=== PATIENT | female | born 1975 | race African-American/Black ===

== ENCOUNTER 2017-06-07 12:57 | Emergency (ER) | payer OTHER ==
[2017-06-07 13:03] VITALS: BMI 42.5
--- NOTE | 2017-06-07 14:24 | PDOC ---
History of Present Illness - General Chief Complaint: Vaginal Bleeding Stated Complaint: ABD PAIN, VAGINAL BLEEDING (6 WKS ) Time Seen by Provider: 06/07/17 14:05 History Source: Patient Exam Limitations: No Limitations - History of Present Illness Initial Comments: CHIEF COMPLAINT: 42 y/o afebrile female, , approximately 6 week female c/o vaginal bleeding x 2 days. HISTORY OF PRESENT ILLNESS: The patient states she had a normal ultrasound and blood work at [facility] on 06/05/17. Yesterday, she began having vaginal bleeding so she went to [facility] ER where they did blood work and a transvaginal ultrasound. She does not remember what her beta number was. She states she has heavier bleeding with abdominal cramping today. She denies f/c, n/v/d, CP, SOB, back pain, hematuria, dysuria. Vital signs on arrival are within normal limits. REVIEW OF SYSTEMS: GENERAL/CONSTITUTIONAL: No fever/chills. No weakness. No weight change. HEAD, EYES, EARS, NOSE AND THROAT: No change in vision. No ear pain or discharge. No sore throat. CARDIOVASCULAR: No chest pain or shortness of breath. RESPIRATORY: No cough, wheezing, or hemoptysis. GASTROINTESTINAL: +abdominal cramping and vaginal bleeding. No nausea, vomiting , diarrhea. GENITOURINARY: No dysuria, frequency, or change in urination. MUSCULOSKELETAL: No joint or muscle swelling or pain. No neck or back pain. NEURO: PHYSICAL EXAM: GENERAL: The patient is awake, alert, and fully oriented, in no acute distress. She is morbidly obese, ambulatory and well appearing. HEAD: Normal with no signs of trauma. ENT: Pupils equal, round and reactive to light, extraocular movements intact, sclera anicteric, conjunctiva clear. Neck supple. LUNGS: Clear to auscultation bilaterally. Normal excursion. No respiratory distress or use of accessory muscles. CV: RRR, S1/S2, no MRG. Cap refill < 2 sec. ABDOMEN: Soft, obese, minimal TTP of suprapubic region. No rebound, guarding or rigidity. VAGINAL: DEFERRED EXTREMITIES: Normal range of motion, no edema. NEUROLOGICAL: Normal speech, normal gait. CN II-XII grossly intact. SKIN: Warm, dry, normal turgor, no rashes or lesions noted. Past History - Past Medical History Allergies/Adverse Reactions: Allergies Allergy/AdvReac Type Severity Reaction Status Date / Time No Known Allergies Allergy Verified 06/07/17 13:00 Home Medications: Ambulatory Orders Nitrofurantoin Monohyd/M-Cryst [Macrobid -] 100 mg PO BID #14 capsule 06/07/17 Asthma: No Cancer: No Cardiac Disorders: No COPD: No Diabetes: No HTN: No Seizures: No Thyroid Disease: No - Immunization History Immunization Up to Date: Yes - Suicide/Smoking/Psychosocial Hx Smoking History: Never smoked Information on smoking cessation initiated: No Hx Alcohol Use: No Drug/Substance Use Hx: No Substance Use Type: None Hx Substance Use Treatment: No *Physical Exam - Vital Signs Last Vital Signs Temp Pulse Resp BP Pulse Ox 98.6 F 86 18 105/58 100 06/07/17 13:00 06/07/17 13:00 06/07/17 13:00 06/07/17 13:00 06/07/17 13:00 ED Treatment Course - LABORATORY CBC & Chemistry Diagram: 06/07/17 14:30 Medical Decision Making - Medical Decision Making A/P: 42 y/o afebrile female, , approximately 6 weeks c/o vaginal bleeding. Plan is as follows: 1. Labs 2. Type and screen Have ultrasound results from yesterday at [facility] which shows: Tiny cystic structure in the endometrium. No pole or yolk sac. Question left ovarian corpus luteum cyst. Will not send for a new ultrasound Beta hcg - 886; extremely low for 6 weeks; most likely actively miscarrying. Blood type is O+ Gave the patient all of her results. Spoke with her doctor who would like her to come to his office on Sunday to repeat blood work and he said he will repeat ultrasound next week. Instructed her to return to the ER immediately if she develops unbearable or intractable abdominal pain. The patient verbalizes understanding of all instructions, has no further questions and is awaiting discharge. *DC/Admit/Observation/Transfer Diagnosis at time of Disposition: Vaginal bleeding in Urinary tract infection Qualifiers: Urinary tract infection type: site unspecified Hematuria presence: without hematuria Qualified Code(s): N39.0 - Urinary tract infection, site not specified - Discharge Dispostion Disposition: HOME Condition at time of disposition: Good - Referrals Referrals: ON STAFF,NOT [Primary Care Provider] - (call your systems eng tomorrow to schedule follow up appointment) - Patient Instructions Printed Discharge Instructions: DI for Vaginal Bleeding During Additional Instructions: Discharge Instructions: -Your beta HCG was 886 today -I spoke with your doctor and he wants you to go to his office on Sunday to repeat your blood work -A prescription has been sent to your pharmacy to treat a Urinary Tract Infection -Please return to the ER with any worsening or concerning symptoms. - Post Discharge Activity
[2017-06-07 14:50] LABS: BASO % 1.1 % (0-2.0); EOS % 2.1 % (0-4.5); HEMATOCRIT 40.4 % (32.4-45.2); LYMPH % 33.4 % (8-40); MCH 27.6 pg (25.7-33.7); MCHC 32.2 g/dl (32.0-36.0); MEAN CELL VOLUME 85.8 fl (80-96); MEAN PLT VOLUME 8.7 fl (7.5-11.1); MONO % 9.2 % (3.8-10.2); NEUT % 54.2 % (42.8-82.8); PLATELET COUNT 252 K/MM3 (134-434); RDW 13.6 % (11.6-15.6); WHITE BLOOD COUNT 5.9 K/mm3 (4.0-10.0)
[2017-06-07 15:33] LABS: URINE APPEARANCE CLEAR; URINE BILIRUBIN NEGATIVE (NEGATIVE); URINE BLOOD 3+ (NEGATIVE); URINE COLOR LTYELLOW; URINE GLUCOSE (UA) NEGATIVE (NEGATIVE); URINE KETONE NEGATIVE (NEGATIVE); URINE LEUK ESTERASE TRACE (NEGATIVE); URINE NITRITE NEGATIVE (NEGATIVE); URINE PROTEIN NEGATIVE (NEGATIVE); URINE UROBILINOGEN NEGATIVE mg/dL (0.2-1.0)
[2017-06-07 15:35] LABS: EPI CELLS RARE /HPF (FEW)
[2017-06-07 16:32] VITALS: BP 123/76; PULSE 78; TEMP 98.2
== END 2017-06-07 16:54 | disposition home or self-care (01) ==
LOC: JER 12:57
DX: O26.891 Other specified pregnancy related conditions, first trimester (principal); O20.8 Other hemorrhage in early pregnancy; O23.41 Unspecified infection of urinary tract in pregnancy, first trimester; Z3A.01 Less than 8 weeks gestation of pregnancy
CPT/HCPCS: 36415; 81003; 81015; 84702; 85025; 86850; 86900; 86901; 99282-25

== ENCOUNTER 2021-05-12 07:49 | Emergency (ER) | payer OTHER ==
[2021-05-12 08:00] VITALS: BP 125/73; PULSE 75; TEMP 98.2; BMI 41.5
[2021-05-12] MEDS ORDERED: METHOCARBAMOL 500 MG TABLET PO ONE (08:12)
[2021-05-12] MEDS ORDERED: KETOROLAC TROMETHAMINE 60 MG/2 ML VIAL IM ONE (08:12)
[2021-05-12] MEDS ORDERED: KETOROLAC TROMETHAMINE 60 MG/2 ML VIAL ONE (08:16)
[2021-05-12] MEDS ORDERED: METHOCARBAMOL 500 MG TABLET ONE (08:16)
== END 2021-05-12 09:25 | disposition home or self-care (01) ==
LOC: JERFT 07:49 → JER 07:49 → JERFT 09:25
PROC: 3E0233Z Introduction of Anti-inflammatory into Muscle, Percutaneous Approach (ICD-10-PCS; principal; 2021-05-12)
DX: M62.830 Muscle spasm of back (principal); W19.XXXA Unspecified fall, initial encounter; Y92.9 Unspecified place or not applicable
CPT/HCPCS: 72100-TC-FY; 99284-25

== ENCOUNTER 2021-11-16 22:56 | Emergency (ER) | payer OTHER ==
[2021-11-16 23:39] VITALS: BP 110/78; PULSE 76; TEMP 97.6; BMI 43.2
[2021-11-17 02:35] LABS: PH,URINE 5.5 (5.0-8.0); URINE APPEARANCE CLEAR; URINE BILIRUBIN NEGATIVE (NEGATIVE); URINE COLOR YELLOW; URINE GLUCOSE (UA) NEGATIVE (NEGATIVE); URINE KETONE NEGATIVE (NEGATIVE); URINE LEUK ESTERASE NEGATIVE (NEGATIVE); URINE NITRITE NEGATIVE (NEGATIVE); URINE PROTEIN NEGATIVE (NEGATIVE); URINE UROBILINOGEN 0.2 mg/dL (0.2-1.0)
[2021-11-17] MEDS ORDERED: ACETAMINOPHEN 325 MG TABLET (FP) PO ONE (03:27)
[2021-11-17] MEDS ORDERED: ACETAMINOPHEN 1000 MG/100 ML BAG IVPB ONE (03:37)
[2021-11-17] MEDS ORDERED: ACETAMINOPHEN 325 MG TABLET (FP) ONE (03:38)
[2021-11-17] MEDS ORDERED: CLINDAMYCIN HCL 300 MG CAPSULE PO ONE (03:43)
[2021-11-17] MEDS ORDERED: CLINDAMYCIN HCL 150 MG CAPSULE (FP) ONE (03:51)
[2021-11-17 04:18] LABS: BASO % 1.1 % (0-2.0); EOS % 2.1 % (0-4.5); HEMOGLOBIN 12.4 GM/dL (10.7-15.3); LYMPH % 42.9 % (8-40); MCH 27.3 pg (25.7-33.7); MCHC 32.8 g/dl (32.0-36.0); MEAN CELL VOLUME 83.4 fl (80-96); MEAN PLT VOLUME 8.7 fl (7.5-11.1); MONO % 7.3 % (3.8-10.2); NEUT % 46.6 % (42.8-82.8); PLATELET COUNT 283 10^3/uL (134-434); RBC 4.56 M/mm3 (3.60-5.2); RDW 14.2 % (11.6-15.6); WHITE BLOOD COUNT 6.3 K/mm3 (4.0-10.0)
[2021-11-17 04:38] LABS: CALCIUM 8.8 mg/dL (8.5-10.1)
[2021-11-17 04:39] LABS: ALBUMIN 3.4 g/dl (3.4-5.0); BLOOD UREA NITROGEN 13.9 mg/dL (7-18)
[2021-11-17 04:44] LABS: BILIRUBIN,TOTAL 0.3 mg/dL (0.2-1); CREATININE 0.8 mg/dL (0.55-1.3); TOT PROT 7.1 g/dl (6.4-8.2)
== END 2021-11-17 05:20 | disposition home or self-care (01) ==
LOC: JER 22:56
DX: L03.113 Cellulitis of right upper limb (principal)
CPT/HCPCS: 0241U-QW; 36415; 71046-TC-FY; 73090-TC-RT-FY; 80053; 81003; 85025; 87086; 99284-25